=== PATIENT | female | born 1945 | race Caucasian/White ===

== ENCOUNTER 2017-12-20 10:11 | Outpatient (CLI) | payer MEDICARE ==
--- NOTE | 2017-12-20 11:15 | RAD ---
EXAM: FOUR VIEWS LUMBAR SPINE: HISTORY: Lumbar stenosis. COMPARISON: None. FINDINGS: Upright AP, upright lateral neutral, upright lateral, flexion, and extension views of lumbar spine ar e submitted for interpretation. There are 5 lumbar-type vertebral bodies. Lumbar spine vertebral lc dy height is maintained. No fracture. In the neutral position, there is 5 mm of retrolisthesis of L 2 upon L3. Upon flexion, there is nearly 5 mm of retrolisthesis of L2 upon L3. Upon extension, ther e is 5 mm of retrolisthesis L2 upon L3. Vacuum disk phenomenon at L2-3 is suspected. IMPRESSION: Essentially stable grade I retrolisthesis of L2 upon L3. POS: [facility]
== END 2017-12-20 10:12 | disposition home or self-care (01) ==
LOC: TBSIIMAG 10:11
PROVIDERS: ATTEND Surgery
DX: M48.061 Spinal stenosis, lumbar region without neurogenic claudication (principal); M54.16 Radiculopathy, lumbar region; M54.5 Low back pain; M43.16 Spondylolisthesis, lumbar region
CPT/HCPCS: 72110